=== PATIENT | male | born 1965 | race Caucasian/White ===

== ENCOUNTER 2020-01-27 10:07 | Emergency (ER) | payer OTHER | END 2020-01-27 12:18 | disposition home or self-care (01) | LOC: EDBD → JVIRT 10:07 | DX: Z11.59 Encounter for screening for other viral diseases (principal) | CPT/HCPCS: C9803; Q3014-GT; U0003 ==

== ENCOUNTER 2020-02-02 09:52 | Emergency (ER) | payer OTHER | END 2020-02-02 10:29 | disposition home or self-care (01) | LOC: EDBD → JVIRT 09:52 | DX: Z20.828 Contact with and (suspected) exposure to other viral communicable diseases (principal) | CPT/HCPCS: C9803; G2012-GT; Q3014-GT; U0003 ==

== ENCOUNTER 2020-03-03 09:40 | Emergency (ER) | payer OTHER | END 2020-03-03 09:43 | disposition home or self-care (01) | LOC: EDBD 09:40 → JVIRT 09:40 | DX: Z20.822 Contact with and (suspected) exposure to COVID-19 (principal) | CPT/HCPCS: C9803; G2251-GT; Q3014-GT; U0003 ==